=== PATIENT | male | born 1995 | race Asian ===

== ENCOUNTER 2018-06-20 03:18 | Emergency (ER) | payer SELFPAY ==
[~2018-06-20] VITALS: Ht 172.7 cm; Wt 60.8 kg
--- NOTE | 2018-06-20 03:20 | NUR ---
BIB [facility] COMPLAING OF NAUSEA, VOMITTING, DIARRHEA X 1HOUR AFTER EATING A MUSHROOMS FOR DINNER. PT AA/OX4. DENIES ABDOMINAL PAIN. SKIN PINK, WARM, DRY. NO S/S SOB. AMBULATED TO HOSPITAL BED WITH STABLE GAIT. MOVES ALL EXTREMITIES. WELL. NAD. VSS STABLE CONDITION. WILL CONTINUE TO MONITOR.
[2018-06-20] MEDS ORDERED: DICYCLOMINE HCL INJ 20 MG/2 ML AMPUL IM ONE ×2 (03:45→04:00)
[2018-06-20] MEDS ORDERED: ONDANSETRON HCL/PF 4 MG/2 ML VIAL ONE ×2 (03:45→04:45)
[2018-06-20 03:59] LABS: BASOPHILS % (AUTO) 0.2 % (0.0-2.0); EOSINOPHILS % (AUTO) 1.2 % (0.0-6.0); HEMATOCRIT 51 % (39-51); HEMOGLOBIN 16.5 g/dL (13.5-17.5); LYMPHOCYTES # (AUTO) 1.1 /CMM (0.8-4.8); LYMPHOCYTES % (AUTO) 7.3 % (20.0-44.0); MEAN CORPUSCULAR HEMOGLOBIN 28 PG (26.0-33.0); MEAN CORPUSCULAR HGB CONC 33 g/dl (31.0-36.0); MEAN CORPUSCULAR VOLUME 85 fL (80-96); MONOCYTES # (AUTO) 0.9 /CMM (0.1-1.30); MONOCYTES % (AUTO) 5.7 % (2.0-12.0); NEUTROPHILS # (AUTO) 13.3 /CMM (1.8-8.9); NEUTROPHILS % (AUTO) 85.6 % (43.0-81.0); PLATELET COUNT (AUTO) 393 /CMM (150-450); RDW COEFFICIENT OF VARIATION 12.7 (11.5-15.0); RED BLOOD CELL COUNT(AUTO) 5.92 MIL/uL (4.5-6.0); WHITE BLOOD COUNT (AUTO) 15.6 K/uL (4.3-11.0)
[2018-06-20] MEDS ORDERED: IV NS 0.9% 1,000 ML BAG IV ONE (04:00)
[2018-06-20] MEDS ORDERED: ONDANSETRON HCL/PF 4 MG/2 ML VIAL IVP ONE (04:00)
[2018-06-20 04:11] LABS: CALCIUM, SERUM 9.7 mg/dL (8.5-10.1); CREATININE 0.9 mg/dL (0.6-1.3); POTASSIUM 3.8 mmol/L (3.5-5.1)
[2018-06-20 04:18] LABS: ALBUMIN 4.8 g/dL (3.4-5.0); BILIRUBIN,DIRECT 0.1 mg/dL (0.0-0.2); BILIRUBIN,TOTAL 0.4 mg/dL (0.2-1.0); TOTAL PROTEIN, SERUM 8.9 g/dL (6.4-8.2)
--- NOTE | 2018-06-20 04:27 | NUR ---
AMBULATED TO BATHROOM STABLE GAIT
--- NOTE | 2018-06-20 04:44 | NUR ---
SITTING UPRIGHT ON TELEPHONE. STABLE CONDITION. VSS. NAD
--- NOTE | 2018-06-20 04:48 | NUR ---
Patient discharged to home in stable condition. Written and verbal after care instructions given. Patient verbalizes understanding of instruction. IV removed. Catheter intact and site benign. Pressure and 4x4 applied to site. No bleeding noted. AMBULATED WITH STEADY GAIT. VSS. NAD.
[2018-06-20 04:50] VITALS: BP 117/70
[2018-06-20] MEDS ORDERED: ONDANSETRON HCL/PF 4 MG/2 ML VIAL IV ONE (05:00)
== END 2018-06-20 04:50 | disposition home or self-care (01) ==
LOC: ER 03:18
DX: A08.4 Viral intestinal infection, unspecified (principal); Z85.841 Personal history of malignant neoplasm of brain
CPT/HCPCS: 36415; 80048; 80076; 83690; 85025; 96361; 96372; 96374; 99284; A4606; J0500; J2405; J7030; Z7610